=== PATIENT | female | born 1975 | race Asian ===

== ENCOUNTER → 2017-02-28 | Outpatient (CLI) | payer OTHER | END | disposition home or self-care (01) | LOC: CFH 08:00 | PROVIDERS: ATTEND Family Medicine | DX: Z12.31 Encounter for screening mammogram for malignant neoplasm of breast (principal); R92.1 Mammographic calcification found on diagnostic imaging of breast; K76.0 Fatty (change of) liver, not elsewhere classified; N28.1 Cyst of kidney, acquired | CPT/HCPCS: 71020; 76700; G0202 ==

== ENCOUNTER → 2017-03-20 | Outpatient (CLI) | payer OTHER | END | disposition home or self-care (01) | LOC: CFH 14:17 | PROVIDERS: ATTEND Family Medicine | DX: N64.89 Other specified disorders of breast (principal); R92.1 Mammographic calcification found on diagnostic imaging of breast | CPT/HCPCS: 76641; G0206 ==

== ENCOUNTER → 2017-03-29 | Outpatient (CLI) | payer OTHER ==
[~2017-03-29] MED LIST: LIDOCAINE 1%, 20ML ONE
== END | disposition home or self-care (01) ==
LOC: CFH 08:02
PROVIDERS: ATTEND Family Medicine
DX: N63.20 Unspecified lump in the left breast, unspecified quadrant (principal); R92.2 Inconclusive mammogram
CPT/HCPCS: 19081; 88305; G0206; J3490

== ENCOUNTER 2017-04-29 07:37 | Inpatient (IN) | payer OTHER ==
[~2017-04-29] VITALS: Ht 152.4 cm; Wt 100.4 kg
[~2017-04-29 07:37] MED LIST changes: +BUPIVACAINE/PF 0.25% ONE; +EPINEPHRINE 1 MG/ML, 1ML ONE; -LIDOCAINE 1%, 20ML ONE
[2017-04-29] MEDS ORDERED: LACTATED RINGERS 1,000 ML IV SCH (07:57)
[2017-04-29] MEDS ORDERED: SCOPOLAMINE PATCH, 1.5MG PATCH.TD72 TD ONE (08:11)
[2017-04-29] MEDS ORDERED: SCOPOLAMINE PATCH, 1.5MG PATCH.TD72 TD STA (08:13)
[2017-04-29 08:36] LABS: HCG UR SG 1.028 (1.003-1.030)
[2017-04-29] MEDS ORDERED: FENTANYL PF 250 MCG/5ML ONE (08:47)
[2017-04-29] MEDS ORDERED: MIDAZOLAM 1 MG/ML, 2ML ONE (08:47)
[2017-04-29] MEDS ORDERED: GLYCOPYRROLATE 0.2MG/1ML, 5ML ONE (09:18)
[2017-04-29] MEDS ORDERED: NEOSTIGMINE 1 MG/ML, 10ML ONE (09:18)
[2017-04-29] MEDS ORDERED: ONDANSETRON 2MG/ML, 2ML ONE (09:46)
[2017-04-29] MEDS ORDERED: PROPOFOL 10 MG/ML, 20ML ONE (09:46)
[2017-04-29] MEDS ORDERED: ROCURONIUM 10 MG/ML,10ML ONE (09:46)
[2017-04-29] MEDS ORDERED: CEFAZOLIN 1,000 MG ONE ×2 (09:46)
[2017-04-29] MEDS ORDERED: DEXAMETHASONE 4 MG/ML, 1ML ONE (09:46)
[2017-04-29] MEDS ORDERED: METOPROLOL 1 MG/ML, 5ML IV PRN (10:00)
[2017-04-29] MEDS ORDERED: ONDANSETRON 2MG/ML, 2ML IVPush PRN (10:00)
[2017-04-29] MEDS ORDERED: PROMETHAZINE 25 MG/ML, 1ML IV PRN (10:00)
[2017-04-29] MEDS ORDERED: ALBUTEROL SULFATE 2.5 MG/3 ML NPPB PRN (10:00)
[2017-04-29] MEDS ORDERED: HYDROmorphone 1 MG/ML, 1ML IV PRN (10:00)
[2017-04-29] MEDS ORDERED: OXYcodone 5 MG/5 ML ORAL.SOL UDC PO PRN (10:00)
[2017-04-29] MEDS ORDERED: hydrALAzine 20 MG/ML, 1ML IV PRN (10:00)
[2017-04-29] MEDS ORDERED: MEPERIDINE/PF 25MG/0.5ML IVPush PRN (10:00)
[2017-04-29] MEDS ORDERED: ACETAMINOPHEN 325 MG TABLET PO PRN (10:00)
[2017-04-29] MEDS ORDERED: EPHEDRINE 50 MG/ML, 1ML IVPush PRN (10:00)
[2017-04-29] MEDS: FENTANYL PF 100 MCG/2ML IV PRN ×2 (10:28→10:35)
[2017-04-29] MEDS ORDERED: FENTANYL PF 100 MCG/2ML ONE (10:34)
[2017-04-29] MEDS ORDERED: LABETALOL 5MG/ML, 20ML ONE (10:34)
[2017-04-29] MEDS: LABETALOL 5MG/ML, 20ML IV PRN ×3 (10:35→11:25)
[2017-04-29] MEDS ORDERED: HYDROmorphone 2 MG/ML, 1ML ONE (10:37)
[2017-04-29] MEDS ORDERED: ACETAMINOPHEN 650 MG/20.3 ML UDC ONE (10:37)
[2017-04-29] MEDS ORDERED: OXYcodone 5 MG/5 ML ORAL.SOL UDC ONE (10:38)
[2017-04-29] MEDS ORDERED: MORPHINE SULFATE 4 MG/ML, 1ML IVPush PRN (13:30)
[2017-04-29] MEDS: HYDROcodone/APAP 5/325 TABLET PO PRN ×4 (16:15→23:21)
[2017-04-29 20:00] VITALS: BP 152/77
[2017-04-30 00:16] VITALS: BP 120/72
[2017-04-30 04:24] VITALS: BP 107/65
[2017-04-30] MEDS: HYDROcodone/APAP 5/325 TABLET PO PRN ×2 (05:08→09:21)
[2017-04-30 08:09] VITALS: BP 119/70
[2017-04-30] MEDS ORDERED: HYDR-3240 PO (11:08)
[2017-04-30] MEDS ORDERED: CEPH-368 PO (11:09)
== END 2017-04-30 11:30 | disposition home or self-care (01) | DRG 583 ==
LOC: OUT 07:37 → 4NOR 12:27 → OUT 13:46 → DCLOUNGE 04-30 10:52
PROVIDERS: ADMIT Surgery; ATTEND Surgery
PROC: 0HTU0ZZ Resection of Left Breast, Open Approach (ICD-10-PCS; principal; 2017-04-29 10:00)
PROC: 0HHU0NZ Insertion of Tissue Expander into Left Breast, Open Approach (ICD-10-PCS; 2017-04-29 10:00)
DX: D05.12 Intraductal carcinoma in situ of left breast (principal); Z90.49 Acquired absence of other specified parts of digestive tract
CPT/HCPCS: 71046; 81025; 88307; C1729; J0171; J0690; J1100; J1170; J2250; J2405; J2704; J2710; J3010; J3490; J7120

== ENCOUNTER → 2017-09-06 | Outpatient (CLI) | payer OTHER ==
[~2017-09-06] MED LIST changes: -BUPIVACAINE/PF 0.25% ONE; +CEPH-368 PO; -EPINEPHRINE 1 MG/ML, 1ML ONE; +HYDR-3240 PO
== END | disposition home or self-care (01) ==
LOC: CFH 12:28
PROVIDERS: ATTEND Family Medicine
DX: N64.4 Mastodynia (principal); Z86.000 Personal history of in-situ neoplasm of breast; Z90.12 Acquired absence of left breast and nipple
CPT/HCPCS: 77065

== ENCOUNTER → 2017-11-06 | Outpatient (CLI) | payer OTHER ==
[~2017-11-06] MED LIST changes: +None per pt
== END | disposition home or self-care (01) ==
LOC: STAR 13:51
PROVIDERS: ATTEND Surgery
DX: Z02.9 Encounter for administrative examinations, unspecified (principal)

== ENCOUNTER 2017-11-11 10:49 | Observation (INO) | payer OTHER ==
[~2017-11-11] VITALS: Ht 165.1 cm; Wt 104.5 kg
[~2017-11-11 10:49] MED LIST changes: +BUPIVACAINE/PF 0.5% ONE; +EPINEPHRINE 1 MG/ML, 1ML ONE
[2017-11-11] MEDS ORDERED: LACTATED RINGERS 1,000 ML IV SCH (11:23)
[2017-11-11 12:20] LABS: HCG UR SG 1.025 (1.003-1.030)
[2017-11-11] MEDS ORDERED: FENTANYL PF 100 MCG/2ML ONE ×3 (12:50→14:55)
[2017-11-11] MEDS ORDERED: MIDAZOLAM 1 MG/ML, 2ML ONE (12:51)
[2017-11-11] MEDS ORDERED: SCOPOLAMINE PATCH, 1.5MG PATCH.TD72 TD ONE (13:06)
[2017-11-11] MEDS ORDERED: SUCCINYLCHOLINE 20 MG/ML, 10ML ONE (13:10)
[2017-11-11] MEDS ORDERED: CEFAZOLIN 1,000 MG ONE (13:10)
[2017-11-11] MEDS ORDERED: PROPOFOL 10 MG/ML, 20ML ONE (13:10)
[2017-11-11] MEDS ORDERED: ONDANSETRON 2MG/ML, 2ML ONE (13:10)
[2017-11-11] MEDS ORDERED: DEXAMETHASONE 4 MG/ML, 1ML ONE (13:10)
[2017-11-11] MEDS ORDERED: ACETAMINOPHEN 325 MG TABLET PO PRN (14:00)
[2017-11-11] MEDS ORDERED: ALBUTEROL SULFATE 2.5 MG/3 ML NPPB PRN (14:00)
[2017-11-11] MEDS ORDERED: LORazepam 2 MG/ML, 1ML IVPush PRN (14:00)
[2017-11-11] MEDS ORDERED: MEPERIDINE/PF 25MG/0.5ML IVPush PRN (14:00)
[2017-11-11] MEDS ORDERED: HYDROmorphone 1 MG/ML, 1ML IV PRN (14:00)
[2017-11-11] MEDS ORDERED: OXYcodone 5 MG/5 ML ORAL.SOL UDC PO PRN (14:00)
[2017-11-11] MEDS ORDERED: PROMETHAZINE 25 MG/ML, 1ML IV PRN (14:00)
[2017-11-11] MEDS ORDERED: hydrALAzine 20 MG/ML, 1ML IV PRN (14:00)
[2017-11-11] MEDS ORDERED: OXYcodone 5 MG/5 ML ORAL.SOL UDC ONE (14:55)
[2017-11-11] MEDS ORDERED: ACETAMINOPHEN 650 MG/20.3 ML UDC ONE (14:55)
[2017-11-11] MEDS: FENTANYL PF 100 MCG/2ML IV PRN ×3 (15:05→16:10)
[2017-11-11] MEDS ORDERED: LABETALOL 5MG/ML, 20ML ONE (15:37)
[2017-11-11] MEDS: LABETALOL 5MG/ML, 20ML IV PRN ×2 (15:38→16:20)
[2017-11-11 16:35] VITALS: BP 118/73
[2017-11-11] MEDS ORDERED: MORPHINE SULFATE 4 MG/ML, 1ML IVPush PRN (18:00)
[2017-11-11 18:48] VITALS: BP 119/64
[2017-11-11] MEDS: CEFAZOLIN PMX 1GM/50ML 50 ML IVPB SCH (19:18)
[2017-11-11] MEDS: HYDROcodone/APAP 5/325 TABLET PO PRN ×2 (19:18→23:03)
[2017-11-11] MEDS ORDERED: ONDANSETRON 2MG/ML, 2ML IVPush PRN (22:00)
[2017-11-12 00:02] VITALS: BP 111/56
[2017-11-12 04:00] VITALS: BP 102/50
[2017-11-12] MEDS: HYDROcodone/APAP 5/325 TABLET PO PRN ×2 (04:05→08:12)
[2017-11-12] MEDS: CEFAZOLIN PMX 1GM/50ML 50 ML IVPB SCH (06:29)
[2017-11-12 07:30] VITALS: BP 108/56
[2017-11-12 09:34] VITALS: BP 109/60
[2017-11-12 09:42] VITALS: BP 110/60
[2017-11-12] MEDS ORDERED: HYDR-3240 PO (10:48)
[2017-11-12] MEDS ORDERED: CEPH-368 PO (10:49)
== END 2017-11-12 11:35 | disposition home or self-care (01) ==
LOC: OUT 10:49 → 4NOR 16:31 → OUT 16:51 → 4NOR 16:52 → DCLOUNGE 11-12 11:00
PROVIDERS: ADMIT Surgery; ATTEND Surgery
DX: D05.10 Intraductal carcinoma in situ of unspecified breast (principal); Z40.01 Encounter for prophylactic removal of breast; Z85.3 Personal history of malignant neoplasm of breast; Z90.12 Acquired absence of left breast and nipple
CPT/HCPCS: 19303; 81025; 88307; 96365; 96366; 96375; C1729; G0378; J0171; J0330; J0690; J1100; J2250; J2405; J2704; J3010; J3490; J7120

== ENCOUNTER 2018-02-06 06:01 | Day surgery (SDC) | payer OTHER ==
[~2018-02-06] VITALS: Ht 162.6 cm; Wt 104.4 kg
[~2018-02-06 06:01] MED LIST changes: -BUPIVACAINE/PF 0.5% ONE; -EPINEPHRINE 1 MG/ML, 1ML ONE
[2018-02-06] MEDS ORDERED: LACTATED RINGERS 1,000 ML IV SCH (06:51)
[2018-02-06 06:52] VITALS: BP 136/88
[2018-02-06] MEDS ORDERED: MIDAZOLAM 1 MG/ML, 2ML ONE (07:08)
[2018-02-06] MEDS ORDERED: FENTANYL PF 250 MCG/5ML ONE (07:08)
[2018-02-06] MEDS ORDERED: PROPOFOL 50 ML ONE (07:08)
[2018-02-06] MEDS ORDERED: BUPIVACAINE/PF-EPI 0.25% 1:200K ONE (07:11)
[2018-02-06 07:23] LABS: HCG UR SG 1.023 (1.003-1.030)
[2018-02-06] MEDS ORDERED: ONDANSETRON ODT 8 MG PO ONE (07:30)
[2018-02-06] MEDS ORDERED: ACETAMINOPHEN 500 MG TABLET PO ONE (07:30)
[2018-02-06] MEDS ORDERED: SCOPOLAMINE PATCH, 1.5MG PATCH.TD72 TD ONE ×2 (07:31→08:00)
[2018-02-06] MEDS ORDERED: MIDAZOLAM 1 MG/ML, 2ML IV PRN (08:30)
[2018-02-06] MEDS ORDERED: DIPHENHYDRAMINE 50 MG/ML, 1ML IVPush PRN (08:30)
[2018-02-06] MEDS ORDERED: EPHEDRINE 50 MG/ML, 1ML IM PRN (08:30)
[2018-02-06] MEDS ORDERED: MORPHINE SULFATE 4 MG/ML, 1ML IVPush PRN (08:30)
[2018-02-06] MEDS ORDERED: PROMETHAZINE 25 MG SUPP PR PRN (08:30)
[2018-02-06] MEDS ORDERED: FENTANYL PF 100 MCG/2ML IV PRN (08:30)
[2018-02-06] MEDS ORDERED: PROMETHAZINE 12.5 MG SUPP PR PRN (08:30)
[2018-02-06] MEDS ORDERED: ONDANSETRON 2MG/ML, 2ML IV PRN (08:30)
[2018-02-06] MEDS ORDERED: OXYcodone 5 MG/5 ML ORAL.SOL UDC PO PRN (08:30)
[2018-02-06] MEDS ORDERED: PROMETHAZINE 25 MG/ML, 1ML IV PRN (08:30)
[2018-02-06] MEDS ORDERED: MEPERIDINE/PF 25MG/0.5ML IVPush PRN (08:30)
[2018-02-06] MEDS ORDERED: PROPOFOL 10 MG/ML, 20ML ONE (08:31)
[2018-02-06] MEDS ORDERED: SUCCINYLCHOLINE 20 MG/ML, 10ML ONE (08:31)
[2018-02-06] MEDS ORDERED: OXYcodone 5 MG/5 ML ORAL.SOL UDC ONE (08:47)
[2018-02-06] MEDS ORDERED: ROCURONIUM 10MG/ML,5ML ONE (11:11)
[2018-02-06] MEDS ORDERED: CEFAZOLIN 1,000 MG ONE (11:11)
== END 2018-02-06 11:50 | disposition home or self-care (01) ==
LOC: OUT 06:01
PROVIDERS: ATTEND Plastic Surgery
DX: T85.49XA Other mechanical complication of breast prosthesis and implant, initial encounter (principal); Y83.8 Other surgical procedures as the cause of abnormal reaction of the patient, or of later complication, without mention of misadventure at the time of the procedure; Y92.89 Other specified places as the place of occurrence of the external cause; Z85.3 Personal history of malignant neoplasm of breast; Z88.8 Allergy status to other drugs, medicaments and biological substances
CPT/HCPCS: 11970; 81025; C1789; J0330; J0690; J2250; J2704; J3010; J7120; Q0162

== ENCOUNTER 2018-02-08 03:41 | Emergency (ER) | payer OTHER ==
[~2018-02-08] VITALS: Ht 162.6 cm; Wt 106.9 kg
[2018-02-08] MEDS ORDERED: ACETAMINOPHEN 325 MG TABLET ONE (05:44)
[2018-02-08] MEDS ORDERED: IBUPROFEN 200 MG TABLET ONE (05:44)
[2018-02-08] MEDS ORDERED: ACETAMINOPHEN 325 MG TABLET PO ONE (06:00)
[2018-02-08] MEDS ORDERED: IBUPROFEN 200 MG TABLET PO ONE (06:00)
[2018-02-08 06:02] LABS: BASOPHILS # (AUTO) 0.02 x10^3/uL (0-0.1); BASOPHILS % (AUTO) 0 % (0-1); EOSINOPHILS # (AUTO) 0.05 x10^3/uL (0-0.4); EOSINOPHILS % (AUTO) 0 % (1-7); LYMPHOCYTES # (AUTO) 1.21 x10^3/uL (1-3.4); LYMPHOCYTES % (AUTO) 9 % (22-44); MD NO; MEAN CORPUSCULAR HEMOGLOBIN 27.2 pg (27.0-34.8); MEAN CORPUSCULAR HGB CONC 33.5 g/dL (32.4-35.8); MEAN CORPUSCULAR VOLUME 81.2 fL (80-100); MEAN PLATELET VOLUME 8.5 fL (7.4-10.4); MONOCYTES # (AUTO) 0.79 x10^3/uL (0.2-0.8); MONOCYTES % (AUTO) 6 % (2-9); NEUTROPHILS # (AUTO) 10.99 x10^3/uL (1.8-6.8); NEUTROPHILS % (AUTO) 84 % (42-75); PLATELET COUNT 272 x10^3/uL (130-400); RED BLOOD COUNT 4.39 x10^6/uL (3.82-5.3); RED CELL DISTRIBUTION WIDTH 14.1 % (9.6-15.2)
[2018-02-08 06:04] LABS: RAPID INFLUENZA A Negative (Negative); RAPID INFLUENZA B Negative (Negative)
[2018-02-08 06:13] LABS: ALANINE AMINOTRANSFERASE 55 U/L (12-78); ALBUMIN 3.4 g/dL (3.4-5.0); ANION GAP 9 mmol/L (5-15); CALCIUM 8.4 mg/dL (8.5-10.1); CHLORIDE 104 mmol/L (98-107); CREATININE 0.82 mg/dL (0.55-1.02)
[2018-02-08 06:16] LABS: ALKALINE PHOSPHATASE 74 U/L (45-117); BILIRUBIN,TOTAL 0.5 mg/dL (0.2-1.0); TOTAL PROTEIN 7.8 g/dL (6.4-8.2)
[2018-02-08 06:47] LABS: CULTURE INDICATED? YES; MICROSCOPIC AUTO
[2018-02-08 07:34] VITALS: BP 152/74
== END 2018-02-08 07:40 | disposition home or self-care (01) ==
LOC: ED 04:17
DX: J15.9 Unspecified bacterial pneumonia (principal); Z85.3 Personal history of malignant neoplasm of breast
CPT/HCPCS: 36415; 71046; 80053; 81001; 83605; 83690; 85025; 87040; 87086; 87400; 99285

== ENCOUNTER 2018-03-13 06:23 | Day surgery (SDC) | payer OTHER ==
[~2018-03-13] VITALS: Ht 157.5 cm; Wt 103.4 kg
[2018-03-13] MEDS ORDERED: BUPIVACAINE/PF 0.25% ONE (06:57)
[2018-03-13] MEDS ORDERED: METHYLENE BLUE 10 MG/ML 10ML ONE (06:57)
[2018-03-13] MEDS ORDERED: EPINEPHRINE 1 MG/ML, 1ML ONE (06:57)
[2018-03-13] MEDS ORDERED: LACTATED RINGERS 1,000 ML IV SCH (07:04)
[2018-03-13 07:10] VITALS: BP 149/92
[2018-03-13 07:35] LABS: HCG UR SG >= 1.030 (1.003-1.030)
[2018-03-13] MEDS ORDERED: SCOPOLAMINE PATCH, 1.5MG PATCH.TD72 TD ONE ×2 (07:48→08:00)
[2018-03-13] MEDS ORDERED: ACETAMINOPHEN 500 MG TABLET ONE (07:49)
[2018-03-13] MEDS ORDERED: MIDAZOLAM 1 MG/ML, 2ML ONE (07:51)
[2018-03-13] MEDS ORDERED: FENTANYL PF 250 MCG/5ML ONE (07:52)
[2018-03-13] MEDS ORDERED: PROPOFOL 10 MG/ML, 20ML ONE (07:54)
[2018-03-13] MEDS ORDERED: ONDANSETRON 2MG/ML, 2ML ONE ×2 (07:55→09:11)
[2018-03-13] MEDS ORDERED: ROCURONIUM 10MG/ML,5ML ONE (07:55)
[2018-03-13] MEDS ORDERED: SUCCINYLCHOLINE 20 MG/ML, 10ML ONE (07:55)
[2018-03-13] MEDS ORDERED: DEXAMETHASONE 4 MG/ML, 1ML ONE (07:55)
[2018-03-13] MEDS ORDERED: CEFAZOLIN 1,000 MG ONE ×2 (07:56)
[2018-03-13] MEDS ORDERED: ACETAMINOPHEN 500 MG TABLET PO ONE (08:00)
[2018-03-13] MEDS ORDERED: PROMETHAZINE 12.5 MG SUPP PR PRN (08:30)
[2018-03-13] MEDS ORDERED: MEPERIDINE/PF 25MG/0.5ML IVPush PRN (08:30)
[2018-03-13] MEDS ORDERED: MORPHINE SULFATE 4 MG/ML, 1ML IVPush PRN (08:30)
[2018-03-13] MEDS ORDERED: DIAZEPAM 5 MG/ML, 2ML IVPush PRN (08:30)
[2018-03-13] MEDS ORDERED: PROMETHAZINE 25 MG/ML, 1ML IV PRN (08:30)
[2018-03-13] MEDS ORDERED: ONDANSETRON 2MG/ML, 2ML IV PRN (08:30)
[2018-03-13] MEDS ORDERED: OXYcodone 5 MG/5 ML ORAL.SOL UDC PO PRN (08:30)
[2018-03-13] MEDS ORDERED: LABETALOL 5MG/ML, 20ML IV PRN (08:30)
[2018-03-13] MEDS ORDERED: ONDANSETRON ODT 8 MG PO PRN (08:30)
[2018-03-13] MEDS ORDERED: FENTANYL PF 100 MCG/2ML IV PRN (08:30)
[2018-03-13] MEDS ORDERED: HYDROmorphone 2 MG/ML, 1ML IVPush PRN (08:30)
[2018-03-13] MEDS ORDERED: hydrALAzine 20 MG/ML, 1ML IV PRN (08:30)
[2018-03-13] MEDS ORDERED: ALBUTEROL SULFATE 2.5 MG/3 ML NPPB PRN (08:30)
[2018-03-13] MEDS ORDERED: MIDAZOLAM 1 MG/ML, 2ML IV PRN (08:30)
[2018-03-13] MEDS ORDERED: HALOPERIDOL 5 MG/ML IV PRN (08:30)
[2018-03-13] MEDS ORDERED: EPHEDRINE 50 MG/ML, 1ML IVPush PRN (08:30)
[2018-03-13] MEDS ORDERED: BUPIVACAINE/PF 0.25% INFIL ONE (08:37)
[2018-03-13] MEDS ORDERED: KETOROLAC 30 MG/1 ML ONE (09:41)
[2018-03-13] MEDS ORDERED: LABETALOL 20 MG/4 ML ONE (09:58)
[2018-03-13] MEDS ORDERED: KETOROLAC 30 MG/1 ML IV PRN (10:00)
[2018-03-13] MEDS ORDERED: FENTANYL PF 100 MCG/2ML ONE (10:08)
[2018-03-13] MEDS ORDERED: hydrALAzine 20 MG/ML, 1ML ONE (10:48)
[2018-03-13] MEDS ORDERED: OXYcodone/APAP 5/325MG TABLET ONE (13:07)
== END 2018-03-13 13:10 | disposition home or self-care (01) ==
LOC: OUT 06:23
PROVIDERS: ATTEND Plastic Surgery
DX: Z85.3 Personal history of malignant neoplasm of breast (principal); Z90.13 Acquired absence of bilateral breasts and nipples; E66.9 Obesity, unspecified; Z68.41 Body mass index [BMI] 40.0-44.9, adult
CPT/HCPCS: 11970; 81025; 94660; C1789; J0171; J0330; J0360; J0690; J1100; J1885; J2250; J2405; J2704; J3010; J3490; J7120; Q9968